=== PATIENT | male | born 1990 | race Caucasian/White ===

== ENCOUNTER 2023-11-09 12:30 | Emergency (ER) | payer OTHER ==
[~2023-11-09] VITALS: Ht 177.8 cm; Wt 88.4 kg
[2023-11-09 12:36] VITALS: O2SAT 98
[2023-11-09] MEDS: ACETAMINOPHEN 325MG TABLET PO ONE (15:37)
[2023-11-09] MEDS: IBUPROFEN 400MG TABLET PO ONE (15:37)
[2023-11-09 16:31] VITALS: BP 117/84; PULSE 84; RESP 18; TEMP 98.9
== END 2023-11-09 16:34 | disposition home or self-care (01) ==
LOC: ER 12:30
DX: M54.9 Dorsalgia, unspecified (principal); R05.9 Cough, unspecified; R09.81 Nasal congestion
CPT/HCPCS: 71045; 99283